=== PATIENT | female | born 2000 | race Caucasian/White ===

== ENCOUNTER 2023-11-26 23:14 | Emergency (ER) | payer SELFPAY | END 2023-11-27 00:55 | disposition left against medical advice (07) | LOC: DL.ED 23:14 | DX: R10.13 Epigastric pain (principal); Z79.899 Other long term (current) drug therapy; Z86.16 Personal history of COVID-19; F17.210 Nicotine dependence, cigarettes, uncomplicated | CPT/HCPCS: 99282; 99283 ==